=== PATIENT | female | born 1960 | race Hispanic/Latino ===

== ENCOUNTER 2023-02-24 12:46 | Outpatient (CLI) | payer BC ==
[2023-02-24 14:33] LABS: #Basophils 0.1 10x3/uL (0.0-0.2); #Eosinphils 0.1 10x3/uL (0.0-0.5); #Monocytes 0.5 10x3/uL (0.0-1.1); #Neutrophils 3.4 10x3/uL (1.5-8.4); %Basophils 0.9 % (0.0-2.0); %Eosinophils 0.9 % (0.0-6.0); %Lymphocytes 37.8 % (18.0-47.0); %Monocytes 7.8 % (0.0-10.0); %Neutrophils 52.4 % (40.0-75.0); Hematocrit 41.5 % (34.9-44.5); Hemoglobin 14.2 g/dL (12.0-15.5); Mean Corpuscular HGB CONC 34.2 g/dL (32.0-36.0); Mean Corpuscular Hemoglobin 29.2 pg (27.0-33.0); Mean Corpuscular Volume 85.2 fl (81.6-98.3); Mean Platelet Volume 10.3 fl (7.4-10.4); Platelet Count 267 10x3/uL (150-450); Red Blood Cell (RBC) Count 4.87 10x6/uL (3.90-5.03); White Blood Cell (WBC) Count 6.5 10x3/uL (3.5-10.5)
[2023-02-24 14:45] LABS: Anion Gap 17 mmol/L (10-20); BUN (Urea Nitrogen) 7 mg/dL (9.8-20.1); Calc. Creatinine Clearance 0 mL/min (70-130); Calcium 9.6 mg/dL (7.8-10.44); Carbon Dioxide 24 mmol/L (22-29); Chloride 103 mmol/L (98-107); Estimated GFR 91; Glucose 55 mg/dL (70-105); Potassium 4.8 mmol/L (3.5-5.1); Sodium 139 mmol/L (136-145)
== END 2023-02-24 12:47 | disposition home or self-care (01) ==
LOC: LABBT 12:46
PROVIDERS: ATTEND Specialist
DX: Z01.818 Encounter for other preprocedural examination (principal); C50.911 Malignant neoplasm of unspecified site of right female breast
CPT/HCPCS: 71046; 80048; 85025; 93005; 93010

== ENCOUNTER 2023-02-28 08:31 | Day surgery (SDC) | payer BC ==
[2023-02-24 13:08] VITALS: BMI 23.6
[2023-02-28] MEDS ORDERED: Ketorolac Tromethamine 30 MG (1 mL) VIAL ONE (09:23)
[2023-02-28] MEDS ORDERED: Acetaminophen 500 MG TAB ONE (09:24)
[2023-02-28] MEDS ORDERED: Lidocaine 1% PF 5 ML VIAL ONE (09:49)
[2023-02-28] MEDS ORDERED: PROPOFOL 20 ML ONE (09:49)
[2023-02-28] MEDS ORDERED: fentaNYL 50 mcg/mL 1 mL Vial ONE (09:49)
[2023-02-28] MEDS ORDERED: CEFAZOLIN 2 GM VIAL ONE (09:49)
[2023-02-28] MEDS ORDERED: Sodium Chloride 0.9% 100 ML ONE (09:50)
[2023-02-28] MEDS ORDERED: Dexamethasone 20 MG/5 ML VIAL ONE (10:06)
[2023-02-28] MEDS ORDERED: PHENYLEPHRINE-NS 100 MCG/ML 10 ML SYRINGE ONE (10:32)
[2023-02-28] MEDS ORDERED: ePHEDrine Sulfate 50 MG/10 ML VIAL ONE (10:32)
[2023-02-28] MEDS ORDERED: Ondansetron PF 4 MG/2 ML Vial ONE (11:50)
[2023-02-28] MEDS ORDERED: Lidocaine 2% PF 5 ML VIAL ONE (12:12)
[2023-02-28] MEDS ORDERED: EPINEPHrine 1 MG/ML VIAL ONE (12:12)
[2023-02-28] MEDS ORDERED: Isosulfan Blue 50 MG/5 ML VIAL ONE (12:12)
[2023-02-28] MEDS ORDERED: Bupivacaine 0.25% HCL 30 ML VIAL ONE (12:12)
== END 2023-02-28 13:35 | disposition home or self-care (01) ==
LOC: SDC 08:31
PROVIDERS: ATTEND Specialist
PROC: 0HBT0ZZ Excision of Right Breast, Open Approach (ICD-10-PCS; principal; 2023-02-28)
PROC: 07B50ZZ Excision of Right Axillary Lymphatic, Open Approach (ICD-10-PCS; principal; 2023-02-28)
DX: C50.511 Malignant neoplasm of lower-outer quadrant of right female breast (principal)
CPT/HCPCS: 76098; 78195; 88307; A9541; C1713; J0171; J1100; J1885; J2001; J2405; J2704; J3010; J3490; Q9968; S0020